=== PATIENT | male | born 1995 | race Hispanic/Latino ===

== ENCOUNTER 2024-08-20 19:59 | Emergency (ER) | payer OTHER, SELFPAY ==
[2024-08-20 20:00] VITALS: BP 140/100
--- NOTE | 2024-08-20 20:45 | ED.GENMED ---
History of Present Illness
General
Chief Complaint: Musculo-Skeletal Complaint
Source: patient
Time Seen by Provider: 08/20/24 20:14
History of Present Illness
History of Present Illness:
29-year-old male with no significant past medical history presenting to the emergency department for evaluation of right humeral pain that started while he was arm wrestling and states he felt a sudden severe pain in [place] to the humerus.
Patient notes significant pain with any range of motion. Denies any previous history of injury or surgery. Did not take anything for pain prior to arrival
Past History
Past History
ED Past Medical History: None
ED Past Surgical History: None
Social History
Tobacco: Non-smoker
Alcohol: Occasional
Drug: None
Personal: Single
Living: with family
Employment: Employed
Review of Systems
Review of Systems
All Other Systems: ROS reviewed and negative except as documented in HPI and ROS
Phy Exam
Physical Exam
Physical Exam:
GENERAL: Alert , patient appears very uncomfortable
EYE: conjunctiva clear
Head: Normocephalic atraumatic
NECK: Supple,
ENT: mmm.
LUNGS: no acute respiratory distress
NEUROLOGICAL: Alert and oriented
SKIN: Warm and dry, skin intact.
MUSCULOSKELETAL: Right upper extremity: Deformity at the mid humerus noted. Pain with any attempted range of motion of the right upper extremity. Easily palpable radial pulse. Cap refill less than 2 seconds. Sensation grossly intact to light
touch throughout.
PSYCH: Normal and appropriate interaction.
Scores
Heart Failure Risk
Heart Failure Risk Score: Not Applicable
Heart Score for Chest Pain Patients
STEMI patient?: Not applicable
Withdrawal Assessment of Alcohol
Withdrawal Assessment Completed?: Not applicable
Course
Orders/Labs/Results
Orders:
Orders
08/20/24 20:04
Humerus, Right 2 Views [CR Humerus - Right Min 2 View*] Urgent
Comment:
Reason For Exam: AT WORK WITH A FRIEND
08/20/24 20:36
Ibuprofen [Motrin] 600 mg PO NOW STA
Oxycodone [Roxicodone] 5 mg PO NOW STA
08/20/24 20:53
Shoulder Immobilizer Right- Tx ONCE
Vital Signs
Initial and Last Documented VS:
Initial Vital Signs
Temp Pulse Resp BP Pulse Ox
98.2 F 80 28 140/100 100
08/20/24 20:00 08/20/24 20:00 08/20/24 20:00 08/20/24 20:00 08/20/24 20:00
Last Documented Vital Signs
Temp Pulse Resp BP Pulse Ox
98.2 F 84 16 126/84 100
08/20/24 20:00 08/20/24 20:55 08/20/24 20:55 08/20/24 20:55 08/20/24 20:55
MDM/Problems Addressed
Differential Diagnosis Includes:
Fracture, dislocation, sprain
MDM/Problems Addressed:
29-year-old male presenting to the ER for evaluation of right upper extremity pain following an acute injury while arm wrestling. Patient was immediately brought to x-ray which showed a displaced midshaft humerus fracture. Oxycodone and Motrin
ordered for pain control. Shoulder immobilizer ordered. Will discuss with Ortho for optimizing treatment plan. Disposition pending
*Radiology
Radiology exam reviewed: preliminary read by ED provider (Midshaft humerus fracture)
*Pulse Oximetry
Patient hypoxic: no
*Critical Care Note
Total Time (30-74mins, 75-104mins- exclusive of procedures): Not Applicable
Patient Management
Discussion with other providers: Marketing Database Analyst
Escalation/DeEscalation of care consider admission/obs:
Case reviewed with Dr. Miguel from ortho, patient okay for outpatient follow up. Shoulder immobilizer and pain control provided. Patient aware of return precautions to the ED
ED Attending Note
-
Portions of this chart may have been created with voice recognition software.� Occasional wrong word or��sound alike� substitutions may have occurred due to the inherent limitations of voice recognition software.
Discharge Plan
Departure
Patient Disposition: Home (Routine Discharge)
Date of Disposition: 08/20/24
Time of Disposition: 20:59
Patient with high blood pressure during this ER visit?: No
Discharge Problem:
Closed right humeral fracture
Instructions: Upper Arm Fracture ED
Prescriptions:
New
oxycodone 5 mg tablet
5 mg PO BID PRN (Reason: Pain) Qty: 10 0RF
Referrals:
UNKNOWN - PT DOES,NOT KNOW [Family Provider] -
John Miguel MD [Active] -
(Orthopedist - Please call for appointment
)
Interventions
Interventions:
*Risk Screen - Suicide Last Done: 08/20/24 20:54
*General Assessment Last Done: 08/20/24 20:54
*Neglect/Abuse Screening Last Done: 08/20/24 20:54
*ED COVID-19 Vaccine History Last Done: 08/20/24 20:54
*Nursing Disposition Last Done: 08/20/24 22:02
ED-Musculoskeletal Assessment Last Done: 08/20/24 21:01
Discharge Date and Time
Discharge Date/Time: 08/20/24 22:02
Print Language: MALAWIAN
[2024-08-20 20:55] VITALS: BP 126/84
[2024-08-20] MEDS: ROXICODONE 5 MG PO (20:56)
[2024-08-20] MEDS: MOTRIN 600 MG PO (20:56)
== END 2024-08-20 22:02 | disposition home or self-care (01) ==
LOC: EMR 19:59
PROVIDERS: EMERGENCY PHYSICIAN Emergency Medicine
DX: S42.331A Displaced oblique fracture of shaft of humerus, right arm, initial encounter for closed fracture (principal); X50.0XXA Overexertion from strenuous movement or load, initial encounter
CPT/HCPCS: 99283; 73060